=== PATIENT | female | born 1970 | race Caucasian/White ===

== ENCOUNTER 2017-03-26 13:57 | Emergency (ER) | payer OTHER ==
[2017-03-26] MEDS ORDERED: Ondansetron ODT 4 MG TAB ONE (15:32)
--- NOTE | 2017-03-26 15:34 | CT ---
CERVICAL SPINE CT NONCONTRAST: Comparison: None. History: Injury, pain. FINDINGS: Prosthetic disc device is present at C5-6 level. No evidence of compression fracture or subluxation. Facet alignment is maintained. No craniocervical distraction injury. IMPRESSION: No acute fracture. POS: [facility]
== END 2017-03-26 15:39 | disposition home or self-care (01) ==
LOC: ERS 13:57
DX: S16.1XXA Strain of muscle, fascia and tendon at neck level, initial encounter (principal); V49.9XXA Car occupant (driver) (passenger) injured in unspecified traffic accident, initial encounter
CPT/HCPCS: 72125; Q0162

== ENCOUNTER 2017-07-20 21:16 | Emergency (ER) | payer OTHER ==
--- NOTE | 2017-07-20 21:45 | RAD ---
ONE VIEW CHEST: 07/20/17 HISTORY: Chest pain. FINDINGS: Normal cardiac silhouette. Lungs and pleural spaces are clear. No pneumothorax or osseous abnormaliti es. IMPRESSION: No acute cardiopulmonary process. POS: [facility]
[2017-07-20 21:57] LABS: #Lymphocytes 1.5 thou/uL (1.20-3.40); #Neutrophils 8.2 thou/uL (1.40-6.50); %Basophils 0.4 % (0.0-1.0); %Eosinophils 0.3 % (0.0-10.0); %Lymphocytes 14.4 % (21.0-51.0); %Monocytes 7.1 % (0.0-10.0); %Neutrophils 77.8 % (42.0-75.0); Hemoglobin 15.6 g/dL (12.0-16.0); Mean Corpuscular HGB CONC 34.7 g/dL (32.0-36.0); Mean Corpuscular Hemoglobin 32.1 pg (27.0-31.0); Mean Corpuscular Volume 92.6 fl (81.0-99.0); Mean Platelet Volume 6.9 fL (7.4-10.4); Platelet Count 314 thou/uL (130-400); RBC Distribution Width 11.5 % (11.5-14.5); Red Blood Cell (RBC) Count 4.85 mill/uL (4.20-5.40); White Blood Cell (WBC) Count 10.5 thou/uL (4.8-10.8)
[2017-07-20 21:58] LABS: #Monocytes 0.7 thou/uL (0.11-0.59)
[2017-07-20 22:08] LABS: BHCG - Serum Negative (NEGATIVE); Pregs Control Background? CLEAR/WHITE (CLR/WHITE); Pregs Control Bar Appear? YES (CONTROL BAR)
[2017-07-20 22:21] LABS: ALT (SGPT) 13 U/L (8-55); AST (SGOT) 11 U/L (5-34); Albumin 4.4 g/dL (3.5-5.0); Alkaline Phosphatase 69 U/L (40-150); Anion Gap 15 mmol/L (10-20); BUN (Urea Nitrogen) 14 mg/dL (7.0-18.7); Bilirubin, Total 0.3 mg/dL (0.2-1.2); CK (CPK) 39 U/L (29-168); Calc. Creatinine Clearance 0 mL/min (70-130); Calcium 10.2 mg/dL (7.8-10.44); Carbon Dioxide 27 mmol/L (22-29); Chloride 99 mmol/L (98-107); Estimated GFR-MDRD 82; Globulin 2.4 g/dL (2.4-3.5); Glucose 116 mg/dL (70-105); Protein, Total 6.8 g/dL (6.0-8.3); Sodium 137 mmol/L (136-145)
[2017-07-20 22:22] LABS: CKMB 0.9 ng/mL (0-6.6); Troponin I Less than 0.010 ng/mL (< 0.028)
[2017-07-21] MEDS ORDERED: Ketorolac Tromethamine 30 MG/ML VIAL ONE (00:27)
[2017-07-21 00:35] LABS: Troponin I 0.012 ng/mL (< 0.028)
== END 2017-07-21 01:16 | disposition home or self-care (01) ==
LOC: ERS 21:16
DX: R73.9 Hyperglycemia, unspecified (principal); R07.9 Chest pain, unspecified; F41.9 Anxiety disorder, unspecified; Z79.899 Other long term (current) drug therapy
CPT/HCPCS: 36415; 71045; 80053; 82550; 82553; 84484; 84703; 85025; 85379; 93005; 96374; J1885